=== PATIENT | male | born 1960 | race Caucasian/White ===

== ENCOUNTER 2020-07-18 15:44 | Emergency (ER) | payer BC, SELFPAY ==
--- NOTE | ~2020-07-18 | CT_ITS ---
EXAMINATION: CTA chest PE protocol DATE: 07/18/2020 18:22 INDICATION: Chest and jaw pain. TECHNIQUE: Computed tomography (CT) pulmonary angiogram of the chest was performed with 100 mL Omnipa que-350 intravenous contrast. Additional 3D reconstructions utilizing coronal maximum intensity proje ction (MIP) were performed. Automated exposure control and iterative reconstruction technique were em ployed. The dose-length product was 570.98 mGy-cm. COMPARISON: None FINDINGS: Excellent contrast opacification of the pulmonary arteries. There is mild streak artifact from dense contrast in the superior vena cava and right atrium. No significant motion artifact which yields diag nostic study demonstrating no pulmonary embolism. Lungs are clear with no airspace opacities, pulmona ry edema, pleural effusion or pneumothorax. Heart size is normal. No pericardial effusion. Thoracic a jamison is normal in caliber with no dissection. No pathologically enlarged thoracic lymphadenopathy. 10 mm low-attenuation right adrenal adenoma. A few small fluid attenuation hepatic cysts the largest me asuring 12 mm in the left hepatic lobe. S-shaped curvature of the thoracolumbar spine with moderate t horacic spondylosis. IMPRESSION: 1. No pulmonary embolism or other acute cardiopulmonary disease. Reviewed, dictated and finalized at location A. UST MACHINE OPERATOR
--- NOTE | ~2020-07-18 | XR_ITS ---
EXAMINATION: XR chest 2V DATE: 07/18/2020 17:13 INDICATION: Mid chest pain and tightness TECHNIQUE: PA and lateral views of the chest were obtained. COMPARISON: Chest radiograph dated 01/28/2009 FINDINGS: The lungs remain clear with no focal airspace opacities, pulmonary edema, pleural effusion or pneumot horax. The cardiomediastinal silhouette is normal. Mild thoracolumbar levocurvature with moderate tho racic spondylosis. IMPRESSION: 1. No acute cardiopulmonary disease. Reviewed, dictated and finalized at location A. EL STATIONARY ENGINEER
--- NOTE | 2020-07-18 15:57 | ECG_ITS ---
Measurements Intervals [place] Rate: 56 P: 30 OR: 170 QRS: -14 QRSD: 118 T: 29 QT: 389 QTc: 377 Interpretive Statements SINUS BRADYCARDIA INTRAVENTRICULAR CONDUCTION DELAY BORDERLINE R WAVE PROGRESSION, ANTERIOR LEADS BORDERLINE ECG Electronically Signed On 07-18-2020 16:14:47 SERVICE CAPTAIN by Harshad Maxwell D.O.
[2020-07-18 16:37] VITALS: BP 136/108; PULSE 58; RESP 14; TEMP 36.1; O2SAT 100
[2020-07-18 16:45] LABS: Basophils Percent Auto 0.5 % (0.2-1.2); Eosinophils Absolute Auto 0.1 K/mm3 (0-0.3); Eosinophils Percent Auto 2.1 % (0-4.4); Hematocrit 47.4 % (42.0-52.0); Hemoglobin 16.4 g/dL (14.0-18.0); Immature Granulocyte Absolute 0.01 K/mm3 (0.00-0.031); Immature Granulocyte Percent A 0.2 % (0-0.5); Lymphocytes Absolute Auto 1.52 K/mm3 (0.9-3.2); Lymphocytes Percent Auto 26.1 % (18.3-44.2); Mean Corpuscular HGB Conc 34.6 g/dl (32-36); Mean Corpuscular Hemoglobin 30.6 pg (26-34); Mean Corpuscular Volume 88.4 fl (80-100); Mean Platelet Volume 10.3 fl (7.4-10.4); Monocytes Absolute Auto 0.4 K/mm3 (0.1-0.6); Neutrophils Absolute Auto 3.7 K/mm3 (1.3-6.7); Neutrophils Percent Auto 64.1 % (45.5-73.1); Platelet Count Result 161 k/mm3 (150-375); Red Blood Count 5.36 M/mm3 (4.6-6.20); Red Cell Distribution Width 12.6 % (11.5-14.5); White Blood Count 5.8 K/mm3 (4.5-10.0)
[2020-07-18 16:56] LABS: INR 1.1; Partial Thromboplastin Time 28.9 SECONDS (22.3-36.8); Prothrombin Time 14.3 Seconds (11.1-14.7)
[2020-07-18 17:01] LABS: Anion Gap 5 mmol/L (8-16); Blood Urea Nitrogen 18 mg/dL (9-20); Calcium 8.6 mg/dL (8.4-10.2); Carbon Dioxide 29 mmol/L (22-30); Chloride 102 mmol/L (98-107); Estimated CRCL calculation 72 ml/min; Estimated Glomerular Filt Rate > 60; Glucose 85 mg/dL (75-110); Sodium 136 mmol/L (137-145)
[2020-07-18 17:13] LABS: Troponin I < 0.012 ng/mL (0.000-0.034)
[2020-07-18] MEDS: ASPIRIN 81 MG CHEWABLE TABLET 324 MG PO (17:41)
--- NOTE | 2020-07-18 18:02 | ED.CHESTPAIN ---
HPI - Chest Pain General Chief Complaint: Chest Pain Stated Complaint: cp Time Seen by Provider: 07/18/20 17:36 Source: patient Mode of arrival: ambulatory Limitations: no limitations History of Present Illness HPI narrative: A 59-year-old male presents to the emergency department with complaints of chest pain. Patient notes that it seems to be in the center of his chest and at times has gone up to his neck/throat. Patient states that it does seem to get better when he sometimes massages this. He noted last night when he leaned backward it seemed to stretch and aggravate this. Patient notes that it started the other day and has been intermittent. He thinks that it also may be related to when he eats. Patient denies any history of cardiac complaints and any history of pain like this before. Related Data Home Medications Medication Instructions Recorded Confirmed No Home Medications 07/18/20 07/18/20 Allergies Allergy/AdvReac Type Severity Reaction Status Date / Time amoxicillin Allergy Intermediate Itching Unverified 07/18/20 18:37 prednisone AdvReac Unknown Other Unverified 07/18/20 18:37 Review of Systems Review of Systems: Narrative: CONSTITUTIONAL: Denies fever, chills, or sweats. EYES: Denies visual changes, redness, or discharge. ENT: Denies rhinorrhea, congestion, sore throat, or otalgia. CARDIOVASCULAR: Denies palpitations, or edema. Endorses chest pain RESPIRATORY: Denies cough or dyspnea. GASTROINTESTINAL: Denies abdominal pain, nausea, vomiting, or diarrhea. GENITOURINARY: Denies dysuria or hematuria. SKIN: Denies rash or itching. MUSCULOSKELETAL: Denies back pain, joint pain, or myalgia. NEUROLOGIC: Denies headache, numbness, dizziness, or weakness. PSYCHIATRIC: Denies anxiety or depression. Exam Narrative: Exam Narrative: GENERAL: Well-appearing, well-nourished, and in no acute distress. HEAD: Normocephalic, atraumatic. EYES: PERRLA and EOMI. ENT: Nares clear, no rhinorrhea or epistaxis. Mucous membranes moist. Oropharynx without tonsillar hypertrophy exudate or other lesions. Bilateral TMs pearly hercules nonbulging NECK: Supple. No adenopathy or masses. No carotid bruits or JVD CHEST: Clear to auscultation. No respiratory distress. No wheezes rales or rhonchi HEART: Regular rate and rhythm. No murmur heard. Normal peripheral pulses. ABDOMEN: Soft, nontender, nondistended, normal active bowel sounds. EXTREMITIES: Normal range of motion. No edema. SKIN: Warm, dry, no rash. NEURO: No focal deficits. Alert and oriented x3. PSYCH: Normal mood and affect. Course Reevaluation(s) Reevaluation #1: Patient resting comfortably. He did have a GI cocktail. He stated by the time he had a his symptoms had already subsided. Except planed all the results. Patient is ready to go home at this time. Time: 20:08 Vital Signs Vital signs: Vital Signs Temperature 36.1 C L 07/18/20 16:37 Pulse Rate 58 L 07/18/20 16:37 Respiratory Rate 14 07/18/20 16:37 Blood Pressure 136/108 H 07/18/20 16:37 Pulse Oximetry 100 07/18/20 16:37 Temperature 36.1 C L 07/18/20 16:37 Pulse Rate 51 L 07/18/20 19:58 Respiratory Rate 16 07/18/20 19:58 Blood Pressure 152/101 H 07/18/20 19:58 Pulse Oximetry 97 07/18/20 19:58 MDM - Chest Pain MDM Narrative Medical decision making narrative: In brief this is a 59-year-old male who came into the emergency department with complaints of chest pain. Patient pain in his description did not sound cardiac on arrival, work-up ensued, 2 troponins were found to be negative. Patient's heart score was calculated, found to be 1. This puts him at a very low risk, combined with 2 - troponins I feel this put the patient as a low risk and can be discharged. Other pathologies considered, patient was sent for CTA, this did rule out aortic tragedy, pulmonary embolus or other pathology within the chest. Medical Records Data Attestation: I reviewed the patient's medical records. Yudy
[2020-07-18] MEDS: BELLADONNA ALK/PHENOB ELIX 10 ML, MAG HYDROX/ALUMINUM HYD/SIMETH 30 ML, LIDOCAINE HCL 2... PO (18:52)
[2020-07-18 18:54] VITALS: BP 136/94; PULSE 60; PULSE 68; RESP 18; O2SAT 98
[2020-07-18 19:37] LABS: Troponin I < 0.012 ng/mL (0.000-0.034)
[2020-07-18 19:58] VITALS: BP 152/101; PULSE 51; RESP 16; O2SAT 97
[2020-07-18 20:54] VITALS: BP 139/92; PULSE 64; RESP 18; O2SAT 98
== END 2020-07-18 20:55 | disposition home or self-care (01) ==
PROVIDERS: Emergency Medicine; Emergency Provider Emergency Medicine; PCP Internal Medicine
DX: R07.9 Chest pain, unspecified (principal); R00.1 Bradycardia, unspecified; I45.9 Conduction disorder, unspecified; R94.31 Abnormal electrocardiogram [ECG] [EKG]
CPT/HCPCS: 36415; 71046; 71275; 80048; 84484; 85025; 85610; 85730; 93005; 99284; A9270; Q9967

== ENCOUNTER 2021-11-02 11:04 | Emergency (ER) | payer BC, SELFPAY ==
--- NOTE | ~2021-11-02 | XR_ITS ---
EXAMINATION: XR chest 2V DATE: 11/02/2021 11:50 INDICATION: Midsternal chest pain and shortness of breath TECHNIQUE: frontal and lateral views of the chest were obtained. COMPARISON: Chest radiograph and CT dated 07/18/2020 FINDINGS: The lungs remain clear with no focal airspace opacities, pulmonary edema, pleural effusion or pneumot horax. The cardiomediastinal silhouette is normal. Moderate thoracic spondylosis. IMPRESSION: 1. No acute cardiopulmonary disease. Reviewed, dictated and finalized at location B.
--- NOTE | 2021-11-02 11:05 | ECG_ITS ---
Measurements Intervals [place] Rate: 57 P: 34 MO: 170 QRS: -29 QRSD: 117 T: 37 QT: 383 QTc: 375 Interpretive Statements SINUS BRADYCARDIA BORDERLINE LEFT AXIS DEVIATION [QRS AXIS < -20] MODERATE INTRAVENTRICULAR CONDUCTION DELAY [110+ ms QRS DURATION] COMPARED TO ECG 07/18/2020 15:50:01 NO SIGNIFICANT CHANGES Electronically Signed On 11-02-2021 20:54:25 CDT by Charla Harper M.D.
[2021-11-02 11:27] VITALS: BP 146/99; PULSE 59; RESP 11; O2SAT 99
--- NOTE | 2021-11-02 11:42 | ED.CHESTPAIN ---
HPI - Chest Pain General Chief Complaint: Chest Pain Stated Complaint: chest pain Time Seen by Provider: 11/02/21 11:42 Source: patient Mode of arrival: ambulatory Limitations: no limitations History of Present Illness HPI narrative: Patient is a 60-year-old male complaining of chest pain, 6 out of 10, midsternal, tightness, worse with deep breaths that started this morning lasted for approximately 3 hours and now resolved. Patient denies any shortness of breath, abdominal pain, nausea, vomiting, diaphoresis, fever or chills. Related Data Home Medications Medication Instructions Recorded Confirmed famotidine PRN 11/02/21 Allergies Allergy/AdvReac Type Severity Reaction Status Date / Time amoxicillin Allergy Intermediate Itching Unverified 11/02/21 11:32 prednisone AdvReac Unknown Other Unverified 11/02/21 11:32 Review of Systems Review of Systems: All systems reviewed & are unremarkable except as noted in HPI and below Constitutional: Constitutional: Denies body ache(s), Denies chills, Denies excessive sweating, Denies fatigue, Denies fever(s), Denies headache(s), Denies lethargy, Denies malaise, Denies weakness and Denies weight loss Eyes: Eyes: Denies blurry vision, Denies change in vision and Denies loss of vision ENT: Denies dizziness, Denies ear discharge, Denies headache(s), Denies lip swelling, Denies epistaxis, Denies nasal congestion, Denies neck pain, Denies throat swelling and Denies tongue swelling Cardiovascular: Cardiovascular: Denies diaphoresis, Denies rapid heart rate, Denies edema, Denies irregular heart rhythm, Denies lightheadedness, Denies palpitations, Denies dyspnea and Denies dyspnea on exertion Respiratory: Respiratory: Denies chest congestion, Denies cough, Denies hemoptysis, Denies dyspnea and Denies dyspnea on exertion Gastrointestinal: Gastrointestinal: Denies abdominal pain, Denies melena, Denies hematochezia, Denies diarrhea, Denies nausea, Denies vomiting and Denies hematemesis Musculoskeletal: Musculoskeletal: Denies abnormal gait, Denies deformity, Denies joint swelling, Denies limited range of motion, Denies neck pain and Denies numbness Neurologic: Denies Abnormal speech present, Denies abnormal gait, Denies confusion, Denies dizziness, Denies headache(s), Denies focal weakness, Denies loss of vision, Denies numbness, Denies Other visual disturbances, Denies Sensory deficit (Neuro) and Denies weakness Psychiatric: Psychiatric: Denies confusion, Denies depression, Denies auditory hallucinations, Denies homicidal ideation and Denies suicidal ideation Endocrine: Endocrine: Denies cold intolerance, Denies excessive sweating, Denies fatigue, Denies heat intolerance and Denies palpitations Hematologic/Lymphatic: Hematologic/Lymphatic: Denies easy bleeding and Denies easy bruising Allergic/Immunologic: Allergic/Immunologic: Denies lip swelling, Denies throat swelling and Denies tongue swelling PMFSH Comments Past medical history: None Family history: Negative for coronary disease or [place] Social history: Non-smoker no EtOH or drug use Exam Const: General: cooperative, healthy appearing, comfortable, no acute distress, well developed, alert and awake; No confusion Orientation/consciousness: oriented to person, oriented to place, oriented to time, patient oriented x3 and No confusion Limitations: no limitations HENMT: Head: normal to inspection, normocephalic and atraumatic Ears: hearing grossly normal bilaterally, TM normal on the right and TM normal on the left General nose exam: Normal external nose present, Normal nares present and No nasal discharge present Face and sinus: normal facial exam Mouth: Yes Normal oral and palatal mucosa present, Yes lip normal, Yes tongue normal and Yes oropharynx normal Throat: posterior oropharynx normal, tonsils normal and uvula midline Eyes: General: appearance normal, both eyes and all related structures Pupils: Equal, round and reactive pupils present
[2021-11-02 11:48] LABS: Basophils Percent Auto 0.6 % (0.2-1.2); Eosinophils Absolute Auto 0.1 K/mm3 (0-0.3); Eosinophils Percent Auto 2.3 % (0-4.4); Hematocrit 46.5 % (42.0-52.0); Immature Granulocyte Absolute 0.01 K/mm3 (0.00-0.031); Immature Granulocyte Percent A 0.2 % (0-0.5); Lymphocytes Absolute Auto 1.05 K/mm3 (0.9-3.2); Lymphocytes Percent Auto 21.6 % (18.3-44.2); Mean Corpuscular HGB Conc 34.4 g/dl (32-36); Mean Corpuscular Hemoglobin 30.2 pg (26-34); Mean Corpuscular Volume 87.7 fl (80-100); Mean Platelet Volume 10.2 fl (7.4-10.4); Monocytes Absolute Auto 0.4 K/mm3 (0.1-0.6); Monocytes Percent Auto 8.2 % (2.6-8.5); Neutrophils Absolute Auto 3.3 K/mm3 (1.3-6.7); Neutrophils Percent Auto 67.1 % (45.5-73.1); Platelet Count Result 168 k/mm3 (150-375); Red Cell Distribution Width 12.4 % (11.5-14.5); White Blood Count 4.9 K/mm3 (4.5-10.0)
[2021-11-02 11:56] LABS: Alanine Aminotransferase 23 U/L (4-50); Albumin Level 4.1 g/dL (3.5-5.1); Alkaline Phosphatase 82 U/L (38-126); Anion Gap 6 mmol/L (8-16); Aspartate Amino Transferase 32 U/L (17-59); Blood Urea Nitrogen 20 mg/dL (9-20); Calcium 8.6 mg/dL (8.4-10.2); Carbon Dioxide 26 mmol/L (22-30); Chloride 105 mmol/L (98-107); Estimated CRCL calculation 90 ml/min; Estimated Glomerular Filt Rate > 60; Glucose 102 mg/dL (65-110); Lipase 92 U/L (23-300); Sodium 137 mmol/L (137-145)
[2021-11-02 12:00] LABS: INR 1.1; Partial Thromboplastin Time 31.1 SECONDS (22.3-36.8); Prothrombin Time 13.7 Seconds (11.1-14.7)
[2021-11-02 12:08] LABS: Troponin I < 0.012 ng/mL (0.000-0.034)
[2021-11-02 14:00] VITALS: BP 147/89; PULSE 60; RESP 16; O2SAT 98
[2021-11-02 14:30] LABS: Troponin I < 0.012 ng/mL (0.000-0.034)
[2021-11-02 15:00] VITALS: BP 154/88; PULSE 61; RESP 14; O2SAT 99
[2021-11-02 15:24] VITALS: BP 150/89; PULSE 61; RESP 16; O2SAT 100
== END 2021-11-02 15:25 | disposition home or self-care (01) ==
PROVIDERS: Emergency Provider Emergency Medicine
DX: R07.89 Other chest pain (principal); R00.1 Bradycardia, unspecified; I45.9 Conduction disorder, unspecified
CPT/HCPCS: 36415; 71046; 80053; 83690; 84484; 85025; 85380; 85610; 85730; 93005; 99284

== ENCOUNTER 2023-08-30 12:41 | Outpatient (CLI) | payer BC, SELFPAY ==
--- NOTE | ~2023-08-30 | CT_ITS ---
EXAMINATION: CT abdomen wo/w con DATE: 08/30/2023 13:28 INDICATION: Renal cysts TECHNIQUE: Computed tomography (CT) of the abdomen was performed prior to then following the administ ration of 100 cc of Omnipaque 350 intravenous contrast. The dose-length product (DLP) was 1431.91 mGy -cm. Automated exposure control and iterative reconstruction technique were employed. COMPARISON: 10/28/2015 FINDINGS: The lung bases are clear. The heart size is normal. Cysts of the liver measure up to 8 mm i n the left hepatic lobe. The spleen, pancreas, gallbladder, and adrenal glands are normal. There is a 1.5 cm enhancing exophytic lesion of the left kidney lower pole. A 1.4 x 0.6 cm lesion of the left m id kidney appears to enhance relative to the postcontrast image but is difficult to distinctly charac terize (image 87). There are no pathologically enlarged abdominal lymph nodes. There are no dilated l oops of bowel. No free intraperitoneal gas is identified. IMPRESSION: 1. Exophytic lesion of the left kidney lower pole suspicious for small renal cell carcinoma. 2. Indeterminate lesion of the left mid kidney. Reviewed, dictated and finalized at location B. NICAL COMMUNICATION TEACHER IMPRESSION: 1. Exophytic lesion of the left kidney lower pole suspicious for small renal ce ll carcinoma. 2. Indeterminate lesion of the left mid kidney.
[2023-08-30 13:18] LABS: Estimated Glomerular Filt Rate > 60
== END 2023-08-30 12:42 | disposition home or self-care (01) ==
PROVIDERS: PCP Family Medicine; Visit Provider Urology
DX: N28.89 Other specified disorders of kidney and ureter (principal); N28.1 Cyst of kidney, acquired
CPT/HCPCS: 74170; Q9967

== ENCOUNTER 2023-11-05 10:09 | Emergency (ER) | payer BC, SELFPAY ==
--- NOTE | ~2023-11-05 | CT_ITS ---
EXAMINATION: CT abdomen pelvis w con DATE: 11/05/2023 13:07 INDICATION: Diarrhea. TECHNIQUE: Computed tomography (CT) of the abdomen and pelvis was performed with 100 mL Omnipaque 350 intravenous contrast. Automated exposure control and iterative reconstruction technique were employe d. The dose-length product was 887.50 mGy-cm. COMPARISON: CT abdomen 08/30/2023 FINDINGS: The visualized portions of the lung bases demonstrate minimal atelectasis on the left. No p leural effusion. The heart size is normal. No pericardial effusion. There is a small sliding hiatal h ernia. There are cysts in the liver measuring up to 8 mm. The spleen, gallbladder, pancreas, and left adrenal gland are normal. There is a 16 mm mass in the right adrenal gland that measured low attenua tion on the prior noncontrast CT, consistent with an adenoma. The right kidney is normal. There are c hanges of partial left nephrectomy with a small hematoma at the site of surgery. There is an 8 mm hyp erdense mass in anteromedial left kidney. There is a 4 mm cyst in left kidney. There is a right ingui nal hernia containing fat. There are no pathologically enlarged lymph nodes. There is no free intrape ritoneal fluid. There is a foci of gas in the left retroperitoneum, consistent with recent surgery. T here are foci of fat stranding in the anterior abdominal wall, consistent with port sites. There are chronic bilateral L5 pars defects. There is 6 mm anterolisthesis of L5 on S1. There is severe lower l umbar spondylosis. IMPRESSION: 1. Surgical changes of recent partial left nephrectomy with small hematoma at the surgical site. 2. 8 mm hyperdense mass in left kidney suspicious for renal cell carcinoma. Reviewed, dictated and finalized at location A. IMPRESSION: 1. Surgical changes of recent partial left nephrectomy with small hematoma at t he surgical site. 2. 8 mm hyperdense mass in left kidney suspicious for renal cell carcinoma.
[2023-11-05 10:35] VITALS: BP 133/93; PULSE 83; RESP 16; TEMP 36.9; O2SAT 100
[2023-11-05 11:57] VITALS: BP 140/86; PULSE 77; RESP 18; O2SAT 98
[2023-11-05 12:03] LABS: Basophils Percent Auto 0.4 % (0.2-1.2); Eosinophils Absolute Auto 0.3 K/mm3 (0-0.3); Eosinophils Percent Auto 4.1 % (0-4.4); Hemoglobin 14.4 g/dL (14.0-18.0); Immature Granulocyte Absolute 0.01 K/mm3 (0.00-0.031); Immature Granulocyte Percent A 0.1 % (0-0.5); Lymphocytes Absolute Auto 0.96 K/mm3 (0.9-3.2); Lymphocytes Percent Auto 13.1 % (18.3-44.2); Mean Corpuscular HGB Conc 34.3 g/dl (32-36); Mean Corpuscular Hemoglobin 30.2 pg (26-34); Mean Corpuscular Volume 88.1 fl (80-100); Mean Platelet Volume 9.8 fl (7.4-10.4); Monocytes Absolute Auto 0.6 K/mm3 (0.1-0.6); Monocytes Percent Auto 7.5 % (2.6-8.5); Neutrophils Absolute Auto 5.5 K/mm3 (1.3-6.7); Neutrophils Percent Auto 74.8 % (45.5-73.1); Platelet Count Result 238 k/mm3 (150-375); Red Blood Count 4.77 M/mm3 (4.6-6.20); Red Cell Distribution Width 12.8 % (11.5-14.5); White Blood Count 7.4 K/mm3 (4.5-10.0)
[2023-11-05 12:05] LABS: Appearance Urine Clear (Clear); Bilirubin Urine Negative (Negative); Blood Urine Negative (Negative); Color Urine Yellow (Yellow); Glucose Urine UA Negative (Negative); Ketones Urine Negative (Negative); Leukocyte Esterase Ur Negative LEU/UL (Negative); Nitrate Urine Negative (Negative); Protein Urine Negative (Negative); Specific Grav Ur 1.016 (1.001-1.035); Urobilinogen Urine 0.2 mg/dL (<2.0); pH Urine 5.5 (5.0-9.0)
[2023-11-05 12:13] LABS: Alanine Aminotransferase 20 U/L (6-50); Albumin Level 3.8 g/dL (3.5-5.1); Alkaline Phosphatase 85 U/L (38-126); Anion Gap 4 mmol/L (4-12); Aspartate Amino Transferase 23 U/L (17-59); Bilirubin,Total 0.9 mg/dL (0.2-1.3); Blood Urea Nitrogen 21 mg/dL (9-20); Calcium 8.9 mg/dL (8.4-10.2); Carbon Dioxide 26 mmol/L (22-30); Chloride 107 mmol/L (98-107); Estimated CRCL calculation 84 ml/min; Estimated Glomerular Filt Rate > 60; Glucose 94 mg/dL (65-110); Lipase 182 U/L (23-300); Potassium 3.8 mmol/L (3.4-5.0); Sodium 137 mmol/L (137-145)
[2023-11-05 12:14] LABS: Add Urine Microscopic? NO
--- NOTE | 2023-11-05 12:44 | ED.NAVMDI ---
HPI - Nausea/Vomiting/Diarrhea General Chief complaint: Nausea/Vomiting/Diarrhea Stated complaint: diarrhea Time Seen by Provider: 11/05/23 11:41 Source: patient and family () Mode of arrival: ambulatory Limitations: no limitations History of Present Illness HPI Narrative: Patient presents with diarrhea. He recently (10/22/23) underwent partial L nephrectomy for a tumor through [facility]. Recovery was going well but a few days ago he started having loose stools. He had 4 bowel movements in 90 minutes that was soft and took Pepto Bismol. He has been using anti-diarrheals (Immodium) which worked until Saturday morning when he again experiened cramping and abdominal pain. No blood in stool. Stools have been dark because of the PeptoBIsmal. PCP sent patient to the ED. Stool today has mucous in it. Believes he had antibiotics in the perioperative period but not sent home on any. Related Data Home Medications Medication Instructions Recorded Confirmed famotidine 40 mg tablet PRN Acid Reflux 11/02/21 Allergies Allergy/AdvReac Type Severity Reaction Status Date / Time amoxicillin Allergy Intermediate Itching Verified 11/05/23 11:48 prednisone AdvReac Unknown Other Verified 11/05/23 11:48 PMFSH Surgical History Surgical History (Updated 11/10/23 @ 08:31 by Stephanie Scales MD) H/O partial nephrectomy left, 10/22/23 ([facility]) Social History Social History (Updated 11/10/23 @ 08:32 by Stephanie Scales MD) Living arrangements: with family Additional living arrangements comments: Gender identity (if verbalized by the patient): Male Exam Narrative: GENERAL: Well-appearing, well-nourished, and in no acute distress. HEAD: Normocephalic, atraumatic. EYES: Non injected, non icteric ENT: Nares clear, no rhinorrhea or epistaxis. NECK: Supple. CHEST: Speaking in full sentences. No respiratory distress. HEART: Regular rate and rhythm. . ABDOMEN: Soft, nondistended. Mild TTP in LLQ. Well healing surgical scars. Areas of ecchymosis in various stages of healing. EXTREMITIES: Normal range of motion. No edema. SKIN: Warm, dry, no rash. NEURO: No focal deficits. Alert and oriented x3. PSYCH: Normal mood and affect. Course Vital Signs Vital signs: Vital Signs Temperature 98.5 F 11/05/23 10:35 Pulse Rate 83 11/05/23 10:35 Respiratory Rate 16 11/05/23 10:35 Blood Pressure 133/93 H 11/05/23 10:35 Pulse Oximetry 100 11/05/23 10:35 Oxygen Delivery Room Air 11/05/23 10:35 Temperature 98.3 F 11/05/23 15:22 Pulse Rate 80 11/05/23 15:22 Respiratory Rate 18 11/05/23 15:22 Blood Pressure 142/89 H 11/05/23 15:22 Pulse Oximetry 99 11/05/23 15:22 Oxygen Delivery Room Air 11/05/23 10:35 MDM - Nausea/Vomiting/Diarrhea MDM Narrative Medical decision making narrative: Patient presents with diarrhea that started a few days ago. Recently (10/21) underwent partial left nephrectomy for a tumor. In the ED he is afebrile with vs that show hypertension. Does not appear markedly dehydrated but with TTP in LLQ so will obtain imaging. The differential DIAGNOSES for acute (<14d) diarrhea includes infectious etiologies (viral, preformed toxins, toxins formed after colonization, invasive bacteria, and parasites), medications, inflammatory causes (IBD, radiation enteritis, ischemic colitis, diverticulitis), malabsorption, secretory causes, or motility disorders. No leukocytosis. Normal kidney function. No marked electrolyte abnormalities. CT imaging without acute process. Patient informed of mass that still remains. He is aware and his surgical team is continuing to monitor this. Has an upcoming appointment. C diff testing ordered but patient unable to produce stool while in the ED. Will discharge ; advised to follow up and return if new/worsening symptoms. Discussed that stool softeners can be used as needed but advised to avoid if/when possible. Monitor for signs of dehydr
[2023-11-05] MEDS: SODIUM CHLORIDE 0.9% IV 1,000 ML 999 ML IV CONT (12:49)
[2023-11-05 12:50] VITALS: BP 148/90; PULSE 78; RESP 18; TEMP 36.7; O2SAT 98
[2023-11-05 13:06] LABS: Magnesium 1.9 mg/dL (1.6-2.3)
[2023-11-05] MEDS: DICYCLOMINE HCL 10 MG CAPSULE PO (13:16)
[2023-11-05] MEDS: MORPHINE SULFATE (*CRX) 4 MG/ML INJ IV PUSH (13:16)
[2023-11-05 13:30] VITALS: BP 140/90; PULSE 74; RESP 16; O2SAT 99
[2023-11-05 13:40] LABS: Influenza A QL RT-PCR Negative (Negative); Influenza B QL RT-PCR Negative (Negative); SARS-CoV-2 RNA PCR Negative (Negative)
[2023-11-05 14:30] VITALS: BP 129/91; PULSE 73; RESP 18; TEMP 36.7; O2SAT 98
--- NOTE | 2023-11-05 15:21 | PC.NURSE ---
Assessment unchanged. No diarrhea stools during ER visit
[2023-11-05 15:22] VITALS: BP 142/89; PULSE 80; RESP 18; TEMP 36.8; O2SAT 99
== END 2023-11-05 15:25 | disposition home or self-care (01) ==
PROVIDERS: Emergency Provider Student in an Organized Health Care Education/Training Program; PCP Family Medicine
DX: R19.7 Diarrhea, unspecified (principal); N28.89 Other specified disorders of kidney and ureter; Z90.5 Acquired absence of kidney; Z20.822 Contact with and (suspected) exposure to COVID-19
CPT/HCPCS: 36415; 74177; 80053; 81003; 83690; 83735; 85025; 87636; 96361; 96374; 99284; A9270; J2270; J7030; Q9967

== ENCOUNTER 2024-04-03 09:11 | Outpatient (CLI) | payer BC, SELFPAY ==
--- NOTE | ~2024-04-03 | XR_ITS ---
EXAMINATION: XR chest 2V 04/03/2024 09:29 INDICATION: Papillary renal cell carcinoma PROCEDURE: 2 view chest COMPARISON: 11/02/2021 FINDINGS: The lungs are clear. The cardiomediastinal silhouette is within normal limits. There are no pleural effusions. There is no pneumothorax suspected. IMPRESSION: 1: NO ACUTE CARDIOPULMONARY DISEASE. Reviewed, dictated and finalized at location B.
--- NOTE | ~2024-04-03 | CT_ITS ---
EXAMINATION: CT abdomen wo/w con DATE: 04/03/2024 09:44 INDICATION: Papillary renal cell carcinoma TECHNIQUE: Computed tomography (CT) of the abdomen was performed without intravenous contrast. The do se-length product was 1375.92 mGy-cm. Automated exposure control and iterative reconstruction [employer] ue were employed. COMPARISON: CT dated 11/05/2023 and 08/30/2023 FINDINGS: Lung bases are unremarkable. No significant pleural or pericardial effusion. Heart size nor mal. Mild atherosclerosis of the aorta without aneurysm. There are small subcentimeter hypodensities of the liver, most likely benign statistically. The spleen, pancreas, adrenal glands and right kidney are unremarkable. Status post partial left nephrectomy. Interval resolution of perinephric hematoma seen on prior examination. No lymphadenopathy. No free air or free fluid. There is grade 1 spondyloli sthesis at L5-S1 secondary to spondylolysis. No focal lytic or blastic lesions. IMPRESSION: 1. No evidence for residual/recurrent neoplasm. Status post partial left nephrectomy. Reviewed, dictated and finalized at location B. IMPRESSION: 1. No evidence for residual/recurrent neoplasm. Status post partial left nephre ctomy.
[2024-04-03 09:38] LABS: Estimated Glomerular Filt Rate 56
== END 2024-04-03 09:12 | disposition home or self-care (01) ==
PROVIDERS: PCP Family Medicine; Visit Provider Urology
DX: C64.9 Malignant neoplasm of unspecified kidney, except renal pelvis (principal); Z90.5 Acquired absence of kidney
CPT/HCPCS: 71046; 74170; Q9967